=== PATIENT | female | born 1970 | race Asian ===

== ENCOUNTER → 2023-11-13 07:05 | Outpatient (REF) | payer BC, SELFPAY | LOC: RAD 07:05 | PROVIDERS: ATTENDING PHYSICIAN Family Medicine | DX: R10.13 Epigastric pain (principal) | CPT/HCPCS: 76700 ==

== ENCOUNTER → 2023-12-13 19:12 | Outpatient (REF) | payer BC, SELFPAY | LOC: WDC 19:12 | PROVIDERS: ATTENDING PHYSICIAN Family Medicine | DX: Z12.31 Encounter for screening mammogram for malignant neoplasm of breast (principal) | CPT/HCPCS: 77063; 77067 ==

== ENCOUNTER 2024-05-06 18:53 | Emergency (ER) | payer BC, SELFPAY ==
[2024-05-06 18:55] VITALS: BP 132/68
[2024-05-06 19:10] LABS: % Basophils 0.9 % (0-2); % Eosinophils 3.9 % (0-6); % Immature Granulocytes 0.1 % (0-0.5); % Lymphocytes 39.6 % (20.5-51.1); % Neutrophils 50.5 % (42.2-75.2); Absolute Basophils 0.1 10^3/uL (0-0.2); Absolute Eosinophils 0.3 10^3/uL (0-0.7); Absolute Lymphocytes 2.7 10^3/uL (1.2-3.4); Absolute Monocytes 0.3 10^3/uL (0.1-0.6); Absolute Neutrophils 3.5 10^3/uL (1.4-6.5); Hematocrit 39.4 % (37.0-47.0); Hemoglobin 13.3 g/dL (12.0-16.0); Mean Corp Hgb Conc. 33.8 g/dL (33.0-37.0); Mean Corpuscular Hgb 29.5 pg (27.0-31.0); Mean Corpuscular Volume 87.4 fL (81.0-99.0); Mean Platelet Volume 10.1 fL (7.4-10.4); Nucleated Red Blood Cells % 0 %; Platelet Count 282 10^3/uL (130-400); Red Blood Cell Count 4.51 10^6/uL (4.20-5.40); Red Cell Dist. Width 13.5 % (11.5-14.5); White Blood Cell Count 6.8 10^3/uL (4.8-10.8)
[2024-05-06 19:22] LABS: ALT (SGPT) 29 U/L (0-35); Albumin 4.8 g/dl (3.5-5.0); Alkaline Phosphatase 81 U/L (38-126); Blood Urea Nitrogen 12 mg/dl (7-17); Calcium 9.5 mg/dl (8.4-10.2); Carbon Dioxide 27 mmol/L (22-30); Chloride 104 mmol/L (98-107); Potassium 4.1 mmol/L (3.5-5.1); Sodium 143 mmol/L (135-145); Total Bilirubin 0.1 mg/dl (0.2-1.3); Total Protein 7.6 g/dl (6.3-8.2); eGFR > 60.00
[2024-05-06 19:32] LABS: AST (SGOT) 30 U/L (14-36); Glucose 135 mg/dl (70-99)
[2024-05-06 19:33] LABS: Troponin I < 0.012 ng/ml
[2024-05-06 19:52] LABS: TSH Reflex To Free T4 1.22 uIU/ml (0.47-4.68)
[2024-05-06 20:03] LABS: Magnesium 2.2 mg/dl (1.6-2.3)
[2024-05-06 21:44] VITALS: BP 126/76
[2024-05-06 22:00] VITALS: BP 130/71
--- NOTE | 2024-05-06 22:12 | ED.GENMED ---
History of Present Illness
General
Chief Complaint: Heart Rate Problem
Source: patient
Exam Limitations: none
Time Seen by Provider: 05/06/24 22:00
History of Present Illness
History of Present Illness:
See MDM
Past History
Past History
ED Past Medical History: Asthma and Other (anxiety)
ED Past Surgical History: Appendectomy and Cholecystectomy
Social History
Tobacco: Non-smoker
Alcohol: None
Drug: None
Personal:
Living: with family
Employment: Employed
Phy Exam
Physical Exam
Physical Exam:
See MDM
Course
Orders/Labs/Results
Orders:
Orders
05/06/24 18:53
ECG [Electrocardiogram (*1)] Urgent
Reason for Study: Palpitations
05/06/24 18:54
EKG- Treatment ONCE
05/06/24 18:57
Electrocardiogram (*1) Urgent
Reason for Study: Bradycardia / Tachycardia
EKG- Treatment ONCE
05/06/24 19:04
Complete Blood Count/With Diff Urgent
Comprehensive Metabolic Panel Urgent
Magnesium Urgent
Comment: ADD ON
TSH Reflex To Free T4 Urgent
Troponin I Urgent
05/06/24 19:47
Add On- LAB Urgent
Tests Added?: mag.
05/06/24 22:34
Propranolol [Inderal] 10 mg PO NOW STA
Abnormal Lab Results
05/06/24
19:04
Glucose 135 H mg/dl
(70-99)
Total Bilirubin 0.1 L mg/dl
(0.2-1.3)
05/06/24 19:04
05/06/24 19:04
Vital Signs
Initial and Last Documented VS:
Initial Vital Signs
Temp Pulse Resp BP Pulse Ox
98.2 F 77 18 132/68 100
05/06/24 18:55 05/06/24 18:55 05/06/24 18:55 05/06/24 18:55 05/06/24 18:55
Last Documented Vital Signs
Temp Pulse Resp BP Pulse Ox
98.2 F 71 18 110/74 98
05/06/24 18:55 05/06/24 23:12 05/06/24 18:55 05/06/24 23:12 05/06/24 21:30
MDM/Problems Addressed
Differential Diagnosis Includes:
HPI and MDM Narrative:
53-year-old female presenting for evaluation of frequent PVCs. She has had issues like this in the past not as frequent. This been ongoing for the past few weeks. She went to a different hospital and was prescribed magnesium. Patient states
symptoms have not improved. She does have cardiology evaluation in 4 days. On exam, patient does have frequent PVCs on the monitor. Her blood work without clinical significance. Electrolytes, thyroid and magnesium within normal limits. Will
start low-dose propranolol
Physical exam
General: Well appearing and non-toxic
HEENT: protecting airway
Neck: appears supple
CV: No evidence of cyanosis. Frequent PVCs. No murmur
Resp: No accessory muscle use
Abd: Non-distended
Extremities: No deformities. No leg edema
Neuro: alert
Psych: Normal affect
Skin: Intact
Problems Addressed including Acute and Chronic Conditions affecting care:
1. Frequent PVCs
Acuity: acute
Prognosis: stable
Details: Will start low-dose propranolol. She has cardiology evaluation and is. Blood work without clinical significance
2. [ ]
Acuity: acute
Prognosis: stable
Details:
3. [ ]
Acuity: acute
Prognosis: stable
Details:
4. [ ]
Acuity: acute
Prognosis: stable
Details:
5. [ ]
Acuity:
Prognosis:
Details:
Updates
Differential Diagnosis (but not limited to): PVCs, electrolyte abnormalities
Testing considered: Second troponin but EKG is nonischemic
Drug therapy (if applicable): OTC meds, please see d/c instruction regarding Rx drugs
Amount and/or Complexity of Data Reviewed
Clinical info obtained from: Patient
External data reviewed: N/A
Labs I independently reviewed (but not limited to): Electrolytes within normal notes
Radiology: N/A
Pulse Ox: not hypoxic
EKG independently reviewed: Sinus rhythm, normal axis, no STEMI, frequent PVCs
Cio: sinus rhythm with frequent PVCs
Critical Care: N/A
Risk of Complication:
Social Determinants of health: Good social support
Discussed with other providers: N/A
Escalation of Care includes Admit/Obs: After being observed in the Emergency Department, pt stable for discharge.
Occasional wrong word or 'sound a like' substitutions may have occurred due to the inherent limitations of voice recognition software. Read the chart carefully and recognize, using context, where substitutions have occurred.
*Critical Care Note
Total Time (30-74mins, 75-104mins- exclusive of procedures): Not Applicable
ED Attending Note
-
Portions of this chart may have been created with voice recognition software.� Occasional wrong word or��sound alike� substitutions may have occurred due to the inherent limitations of voice recognition software.
Discharge Plan
Departure
Discharge Problem:
Frequent PVCs
Instructions: Ventricular premature beats
Prescriptions:
New
propranolol 10 mg tablet
10 mg PO BID PRN (Reason: palpitations) Qty: 14 0RF
No Action
medroxyprogesterone 10 MG tablet
10 mg PO DAILY Qty: 30 2RF
ibuprofen 600 MG tablet
600 mg PO Q4HPRN PRN (Reason: pain/cramps) Qty: 30 0RF
Referrals:
UNKNOWN - PT DOES,NOT KNOW [Family Provider] -
Stand Alone Forms: Return to Work
Activity Restrictions/Additional Instructions:
Please keep your cardiology appointment. Please return for worsening symptoms.
Interventions
Interventions:
*Risk Screen - Suicide Last Done: 05/06/24 18:55
*General Assessment Last Done: 05/06/24 18:55
*Neglect/Abuse Screening Last Done: 05/06/24 18:55
ED- Fall Risk Assessment Last Done: 05/06/24 21:30
*ED COVID-19 Vaccine History Last Done: 05/06/24 18:55
ED- Cardiac Assessment Last Done: 05/06/24 21:30
ED- Pulmonary Assessment Last Done: 05/06/24 21:30
Discharge Date and Time
Print Language: [id number]
[2024-05-06 23:00] VITALS: BP 110/74
[2024-05-06] MEDS: INDERAL 10 MG PO (23:12)
[2024-05-07] VITALS: BP 118/73
== END 2024-05-07 00:28 | disposition home or self-care (01) ==
LOC: EMR 18:53
PROVIDERS: Student in an Organized Health Care Education/Training Program; EMERGENCY PHYSICIAN Student in an Organized Health Care Education/Training Program
DX: I49.3 Ventricular premature depolarization (principal); J45.909 Unspecified asthma, uncomplicated; F41.9 Anxiety disorder, unspecified; Z90.49 Acquired absence of other specified parts of digestive tract; Z88.0 Allergy status to penicillin; Z88.6 Allergy status to analgesic agent; Z88.1 Allergy status to other antibiotic agents; Z91.040 Latex allergy status
CPT/HCPCS: 99283; 80053; 83735; 84443; 84484; 85025; 93005

== ENCOUNTER → 2024-05-23 12:52 | Outpatient (REF) | payer BC, SELFPAY | LOC: RCS 12:52 | PROVIDERS: ATTENDING PHYSICIAN Internal Medicine Cardiovascular Disease; FAMILY PHYSICIAN Family Medicine | DX: R00.2 Palpitations (principal) | CPT/HCPCS: 93017; 93350 ==

== ENCOUNTER → 2024-05-31 15:59 | Outpatient (REF) | payer BC, SELFPAY | LOC: RCS 15:59 | PROVIDERS: ATTENDING PHYSICIAN Internal Medicine Cardiovascular Disease; FAMILY PHYSICIAN Family Medicine | DX: R00.2 Palpitations (principal) | CPT/HCPCS: 93306 ==

== ENCOUNTER → 2024-06-11 13:24 | Outpatient (REF) | payer BC, SELFPAY | LOC: DHSLP 13:24 | PROVIDERS: ATTENDING PHYSICIAN Internal Medicine Cardiovascular Disease; FAMILY PHYSICIAN Family Medicine | DX: G47.33 Obstructive sleep apnea (adult) (pediatric) (principal) | CPT/HCPCS: 95800 ==

== ENCOUNTER → 2024-08-30 13:31 | Outpatient (REF) | payer BC, SELFPAY | LOC: RAD 13:31 | PROVIDERS: ATTENDING PHYSICIAN Family Medicine | DX: H35.3211 Exudative age-related macular degeneration, right eye, with active choroidal neovascularization (principal); R51.9 Headache, unspecified; R41.3 Other amnesia | CPT/HCPCS: 70450 ==

== ENCOUNTER → 2025-07-03 07:32 | Outpatient (REF) | payer BC, SELFPAY | LOC: RAD 07:32 | PROVIDERS: ATTENDING PHYSICIAN Family Medicine | DX: R10.11 Right upper quadrant pain (principal) | CPT/HCPCS: 76700 ==